=== PATIENT | male | born 1980 | race Caucasian/White ===

== ENCOUNTER 2019-11-08 12:36 | Emergency (ER) | payer MEDICAID, SELFPAY ==
--- NOTE | ~2019-11-08 | XR_ITS ---
EXAMINATION: XR chest 2V DATE: 11/08/2019 13:42 INDICATION: Chest pain TECHNIQUE: PA and lateral views of the chest are obtained. COMPARISON: 01/06/2015 FINDINGS: There are airspace opacities of the lower lobes. There is no pleural effusion or pneumothor ax. The cardiomediastinal silhouette is normal. Chronic lumbar compression deformities are noted. IMPRESSION: 1. Airspace opacities of the lower lobes, consistent with pneumonia. Reviewed, dictated and finalized at location A.
[2019-11-08 12:46] VITALS: BP 114/60; PULSE 90; RESP 18; TEMP 37.2; O2SAT 100
--- NOTE | 2019-11-08 13:11 | ECG_ITS ---
Measurements Intervals [place] Rate: 105 P: 50 DC: 136 QRS: 37 QRSD: 91 T: 54 QT: 322 QTc: 426 Interpretive Statements SINUS TACHYCARDIA BASELINE WANDER- V4 ABNORMAL ECG Electronically Signed On 11-09-2019 7:45:37 CDT by Christiano Boston D.O.
--- NOTE | 2019-11-08 13:17 | PC.NURSE ---
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 Legs with numerous sores from Shooting drugs under skin
--- NOTE | 2019-11-08 13:26 | ED.GENADULT ---
HPI - General Adult General Chief complaint: Unspecified Stated complaint: possible covid History of Present Illness HPI narrative: 39 y.o. chronic opioid user became ill 8 days ago with body aches, diffuse, constant headache, bilateral shoulder pain, diarrhea, finger/hand/toe and plantar redness, swelling and pain. Today he has a cough and pain in his chest made worse with inspiration and movement. He has had chills and sweating for the past 8 days. He has not had his temperature taken. His headache is associated with photophobia but no blurring or weakness. The right shoulder pain was severe for 2 -3 days then resolved. Left shoulder pain started about 5 days ago, decreased after 2 - 3 days. Abduction and rotation made pain worse. Pt. still unable to fully abduct L shoulder His hands and fingers hurt so much he has trouble picking things up. He has had 6-7 diarrhea stools daily without blood or mucous. Because of long hx of IV drug use and inability to obtain IV access he has had to have a Picc line placed in the past. Treatment of cellulitis. Related Data Home Medications Medication Instructions Recorded Confirmed No Home Medications 11/08/19 11/08/19 Allergies Allergy/AdvReac Type Severity Reaction Status Date / Time No Known Allergies Allergy Verified 11/08/19 13:04 Review of Systems Constitutional: Constitutional: Reports no additional constitutional complaints and Reports body ache(s) Eyes: Eyes: Reports no additional eye complaints ENT: Reports dry mouth and Denies sore throat Cardiovascular: Cardiovascular: Reports no additional cardiovascular complaints Respiratory: Respiratory: Reports no additional respiratory complaints and Reports pain with cough Comments: Chest pain, primarily left anterior, with inspiration Gastrointestinal: Gastrointestinal: Denies vomiting Comments: No nausea or vomiting. Genitourinary: Genitourinary: Reports dysuria Comments: Dysuria. No urethral discharge. Same female sexual partner for the past 2 years. 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 Gender identity (if verbalized by the patient): Male Sexual Orientation (if Verbalized by the Patient): Straight or Heterosexual Exam Narrative: Exam Narrative: Appears very uncomfortable Const: Orientation/consciousness: patient oriented x3 HENMT: Head: normal to inspection, atraumatic and no scalp lesions Ears: hearing grossly normal bilaterally and TM's normal bilaterally Face and sinus: other Mouth: Yes Normal oral and palatal mucosa present Eyes: General: appearance normal, both eyes and all related structures Eyelids: eyelids normal Conjunctivae: conjunctivae normal Pupils: Equal, round and reactive pupils present EOM: EOMs intact bilaterally Neck: Neck: normal visual inspection, full ROM, no lymphadenopathy, no meningeal signs (c/o neck soreness with movement but pt. has full ROM. ) and no lymphadenopathy noted Chest: Chest palpation & inspection: normal inspection of the chest and normal palpation of entire chest wall ( tender bilateral anterior chest ) Resp: Effort & Inspection: normal respiratory effort and able to speak in complete sentences Auscultation: clear to auscultation bilaterally Cardio: Rate: regular rate Rhythm: regular rhythm Heart sounds: S1 normal heart sound present, S2 normal heart sound present and no murmurs GI: Inspection: normal to inspection GI Palp: N
[2019-11-08 14:05] LABS: Appearance Urine Sl Cloudy (Clear); Bilirubin Urine Negative (Negative); Color Urine Amber (Yellow); Glucose Urine UA Negative (Negative); Ketones Urine Negative (Negative); Leukocyte Esterase Ur Negative (Negative); Nitrate Urine Negative (Negative); Protein Urine 1+ (Negative); Urobilinogen Urine >=8.0 mg/dL (0.2-1.0)
[2019-11-08 14:11] LABS: Add Urine Microscopic? YES; Bacteria Urine 1+ /hpf; Blood Urine Trace-Intact (Negative); Mucus Urine Few /lpf; RBC Urine 0-2 /hpf (0-2); Squamous Epithelial Cell Urine Rare /hpf (Few); WBC Urine None seen /hpf (0-3)
[2019-11-08 14:13] VITALS: BP 110/60; PULSE 100; RESP 18; TEMP 37.2; O2SAT 99
[2019-11-08 14:14] LABS: Amphetamine Screen Urine Positive (Negative); Barbiturate Screen Urine Negative (Negative); Benzodiazepines Screen Urine Negative (Negative); Cannabinoid Screen Urine Negative (Negative); Cocaine Screen Urine Negative (Negative); Methadone Screen Urine Negative (Negative); Opiate Screen Urine Negative (Negative); Phencyclidine Screen Urine Negative (Negative)
--- NOTE | 2019-11-08 14:30 | PC.NURSE ---
[facility] called for possible transfer, due to need PICC Line
[2019-11-08 14:38] VITALS: BP 111/60; PULSE 98; RESP 18; O2SAT 98
--- NOTE | 2019-11-08 14:38 | PC.NURSE ---
LUCILA Waldrop called to review for possible admit to [facility]
--- NOTE | 2019-11-08 15:02 | PC.NURSE ---
[facility] denied care, stated we need to call a PICC team and this was a lateral transfer. this caused a delay in care.
--- NOTE | 2019-11-08 15:06 | PC.NURSE ---
[facility] called
--- NOTE | 2019-11-08 15:08 | PC.NURSE ---
cxr films sent to [facility]
[2019-11-08] MEDS: cefTRIAXone 1 GM VIAL IM (15:25)
[2019-11-08] MEDS: AZITHROMYCIN 250 MG TABLET 500 MG PO (15:25)
[2019-11-08 15:43] VITALS: BP 120/66; PULSE 100; RESP 18; TEMP 37.3; O2SAT 100
[2019-11-08 16:20] VITALS: BP 121/66; PULSE 100; RESP 18; TEMP 37.3; O2SAT 97
[2019-11-09 14:26] LABS: SARS-CoV-2 RNA PCR Negative
== END 2019-11-08 16:22 | disposition short-term general hospital (02) ==
LOC: CHSED 12:38
PROVIDERS: Emergency Provider Family Medicine
DX: J18.9 Pneumonia, unspecified organism (principal)
CPT/HCPCS: 71046; 80307; 81001; 87045; 87046; 87427; 87491; 87591; 87635; 93005; 96372; 99283; 99285; A9270; C9803; J0696; U0003

== ENCOUNTER 2020-01-18 13:36 | Emergency (ER) | payer BC, SELFPAY ==
[2020-01-18 13:36] VITALS: BP 179/104; PULSE 113; RESP 14; TEMP 36.7; O2SAT 97
[2020-01-18 13:40] VITALS: RESP 18
== END 2020-01-18 13:50 | disposition left against medical advice (07) ==
PROVIDERS: Emergency Provider Emergency Medicine
DX: Z53.8 Procedure and treatment not carried out for other reasons (principal)
CPT/HCPCS: 99199